=== PATIENT | male | born 1950 | race Caucasian/White ===

== ENCOUNTER 2024-11-17 18:22 | Inpatient (IN) | payer OTHER ==
[~2024-11-17] VITALS: Ht 185.4 cm; Wt 96.8 kg
[2024-11-17] MEDS ORDERED: Albuterol 2.5 MG/3 ML VIAL INH SCH (22:25)
[2024-11-17] MEDS ORDERED: Azithromycin 500 MG in NS 250 ML IV ONE (23:00)
[2024-11-17] MEDS ORDERED: CefTRIAXone Sodium 1,000 MG in NS 100 ML IV ONE (23:00)
[2024-11-17] MEDS ORDERED: FLU VACC TS2024-25(6MOS UP)/PF 45 MCG/0.5 ML SYRINGE IM ONE (23:25)
[2024-11-17] MEDS ORDERED: ATEN50 PO (23:33)
[2024-11-17 23:35] LABS: Influenza A, PCR NEGATIVE (NEGATIVE); Influenza B, PCR NEGATIVE (NEGATIVE); Resp Syncytial Virus, PCR NEGATIVE (NEGATIVE)
[2024-11-18 00:03] LABS: SARS-Cov-2 (COVID-19) PCR, MMC POSITIVE (NEGATIVE)
[2024-11-18 00:09] LABS: Base Excess Venous -11.9 mmol/L; Bicarbonate Venous 16.7 mmol/L (24.0-30.0); PCO2 Venous 21.6 mmHg (38-42); pH Blood Venous 7.39 (7.34-7.37)
[2024-11-18 01:20] VITALS: BP 125/76
--- NOTE | 2024-11-18 01:28 | NUR ---
0045 PT ARRIVED TO ROOM VIA GURNEY FROM ER IN STABLE CONDITION. REPORTS SOB THAT INCREASES WITH EXERTION, ON 2L NC O2 AT 99%. NO OTHER APPARENT SIGNS OF DISTRESS. CALL LIGHT IS IN REACH.
--- NOTE | 2024-11-18 05:47 | NUR ---
0200 PT LYING IN BED, EYES CLOSED, APPEARS TO BE RESTING. BREATHING IS EVEN, UNLABORED. NO APPARENT SIGNS OF DISTRESS. CALL LIGHT IS IN REACH.
--- NOTE | 2024-11-18 05:51 | NUR ---
0400 PT LYING IN BED, EYES CLOSED, APPEARS TO BE RESTING. BREATHING IS EVEN, UNLABORED. NO APPARENT SIGNS OF DISTRESS. CALL LIGHT IS IN REACH.
--- NOTE | 2024-11-18 05:52 | NUR ---
PT IS AAO X 4, REPORTS SOB THAT INCREASES WITH EXERTION, ON 2L NC O2 AT 99%.
--- NOTE | 2024-11-18 05:53 | NUR ---
PT LYING IN BED, EYES CLOSED, APPEARS TO BE RESTING. BREATHING IS EVEN, UNLABORED. NO APPARENT SIGNS OF DISTRESS. CALL LIGHT IS IN REACH. NO OTHER CHANGES THIS SHIFT.
[2024-11-18 06:02] LABS: BASOPHILS ABSOLUTE AUTO 0.03 K/mm3 (0.00-0.23); BASOPHILS PERCENT AUTO 1 % (0-2); EOSINOPHILS ABSOLUTE AUTO 0.29 K/mm3 (0.00-0.68); EOSINOPHILS PERCENT AUTO 4 % (0-6); IMMATURE GRAN ABSOLUTE AUTO 0.06 K/mm3 (0.00-0.10); IMMATURE GRAN PERCENT AUTO 1 % (0-1); LYMPHOCYTES ABSOLUTE AUTO 0.69 K/mm3 (0.84-5.20); LYMPHOCYTES PERCENT AUTO 11 % (21-46); MONOCYTES ABSOLUTE AUTO 0.38 K/mm3 (0.16-1.47); MONOCYTES PERCENT AUTO 6 % (4-13); Mean Corpuscular HGB 30.8 pg (26.0-34.0); Mean Corpuscular Volume 88 fL (80-100); Mean Platelet Volume 9.4 fL (9.1-12.4); NEUTROPHILS ABSOLUTE AUTO 5.14 K/mm3 (1.96-9.15); NEUTROPHILS PERCENT AUTO 78 % (41-73); Platelet Count 247 K/mm3 (150-400); RDW Coefficient Variation 13.8 % (11.7-14.2); Red Blood Cell Count 4.54 M/mm3 (4.30-5.90); White Blood Cell Count 6.59 K/mm3 (4.00-11.30)
[2024-11-18 06:09] VITALS: BP 136/72
[2024-11-18 06:18] LABS: Albumin, Blood 1.9 g/dL (3.4-5.0); Albumin/Globulin Ratio 0.5 (0.8-1.8); Bilirubin, Total 0.7 mg/dL (0.1-1.0); Calcium, Blood 9.5 mg/dL (8.5-10.1); Creatinine, Blood 0.9 mg/dL (0.60-1.20); Globulin, Blood 4.2 g/dL (2.2-4.0); Magnesium, Blood 2.3 mg/dL (1.6-2.4); Potassium, Blood 3.7 mmol/L (3.5-5.5); Total Protein, Blood 6.1 g/dL (6.4-8.2)
[2024-11-18 08:13] VITALS: BP 143/70
[2024-11-18] MEDS ORDERED: NIRMATRELVIR/RITONAVIR 3 TAB BLISTER CARD PO SCH (09:00)
[2024-11-18] MEDS ORDERED: Enoxaparin 40 MG/0.4 ML SYR SC SCH (09:00)
[2024-11-18] MEDS ORDERED: Lactobacil 2-S.Thermo-Bifido 1 1 Cap PO SCH (09:00)
--- NOTE | 2024-11-18 17:50 | NUR ---
PATIENT A/OX4, UP INDEPENDENTLY IN ROOM. VSS, ON 1LO2 TO MAINTAIN SATS. SOB WITH EXERTION. CONTINENT OF BOWEL/BLADDER. DENIES ANY PAIN OR DISCOMFORT. TOLERATING HEART HEALTHY DIET. NO NEW CONCERNS THIS SHIFT. PATIENT COOPERATIVE WITH CARE AND MAKES NEEDS KNOWN.
[2024-11-18 19:55] VITALS: BP 142/69
[2024-11-18] MEDS ORDERED: NS 250 ML IV PRN (20:20)
[2024-11-18] MEDS ORDERED: Atenolol 50 MG Tab PO SCH (21:00)
[2024-11-18] MEDS ORDERED: Azithromycin 500 MG in NS 250 ML IV SCH (21:00)
[2024-11-18] MEDS ORDERED: CefTRIAXone Sodium 1,000 MG in NS 100 ML IV SCH (21:00)
--- NOTE | 2024-11-19 05:37 | NUR ---
SHIFT SUMMARY PT COMPLAINING OF DRY MOUTH. OFFERED MOUTH HYDRATION DROPS, SUDANESE ICE POPS, WATER, AND SPONGES. PT STATES HE USES COUGH DROPS AT HOME FOR HIS CHRONIC DRY MOUTH. PT CONTENT WITH OPTIONS GIVEN TO HIM. PT HAS SLEPT THROUGH NIGHT AND HAS BEEN PLEASANT AND COOPERATIVE WITH HIS CARE. DR. US ORDERED MORNING LABS, CMP AND CBC. ORDER ENTERED AND LABS DRAWN. WILL RELAY TO DAY SHIFT.
[2024-11-19 06:01] LABS: BASOPHILS ABSOLUTE AUTO 0.03 K/mm3 (0.00-0.23); BASOPHILS PERCENT AUTO 1 % (0-2); EOSINOPHILS ABSOLUTE AUTO 0.27 K/mm3 (0.00-0.68); EOSINOPHILS PERCENT AUTO 5 % (0-6); Hematocrit 41.1 % (37.0-53.0); Hemoglobin 14.1 g/dL (13.5-17.5); IMMATURE GRAN ABSOLUTE AUTO 0.07 K/mm3 (0.00-0.10); IMMATURE GRAN PERCENT AUTO 1 % (0-1); LYMPHOCYTES PERCENT AUTO 15 % (21-46); MONOCYTES ABSOLUTE AUTO 0.33 K/mm3 (0.16-1.47); MONOCYTES PERCENT AUTO 6 % (4-13); Mean Corpuscular HGB 30.3 pg (26.0-34.0); Mean Corpuscular HGB Conc 34.3 g/dL (31.5-36.5); Mean Corpuscular Volume 88 fL (80-100); Mean Platelet Volume 9.4 fL (9.1-12.4); NEUTROPHILS ABSOLUTE AUTO 3.78 K/mm3 (1.96-9.15); NEUTROPHILS PERCENT AUTO 72 % (41-73); Platelet Count 261 K/mm3 (150-400); RDW Coefficient Variation 13.8 % (11.7-14.2); RDW Standard Deviation 44.4 fL (35.1-46.3); Red Blood Cell Count 4.66 M/mm3 (4.30-5.90); White Blood Cell Count 5.28 K/mm3 (4.00-11.30)
[2024-11-19 06:14] LABS: Albumin, Blood 1.9 g/dL (3.4-5.0); Albumin/Globulin Ratio 0.5 (0.8-1.8); Bilirubin, Total 0.6 mg/dL (0.1-1.0); Bun/Creatinine Ratio 19.8 (12.0-20.0); Calcium, Blood 9.3 mg/dL (8.5-10.1); Creatinine, Blood 0.96 mg/dL (0.60-1.20); Globulin, Blood 4.1 g/dL (2.2-4.0); Potassium, Blood 4.3 mmol/L (3.5-5.5)
[2024-11-19 06:19] VITALS: BP 126/71
[2024-11-19 08:08] VITALS: BP 142/72
[2024-11-19] MEDS ORDERED: CEFP200 PO (12:53)
[2024-11-19] MEDS ORDERED: AZIT250 PO (12:54)
[2024-11-19] MEDS ORDERED: VISBIOME 112.51 EACH PO (12:55)
--- NOTE | 2024-11-19 13:57 | NUR ---
PT DISHARGED VIA WHEELCHAIR ALL PAPERWORK REVIEWED AND EDUCATIONAL MATERAIL WAS SENT. PT IS INDPENDENT IN ROOM AND AOX4. NO DISTRESS NOTED. ALL PERSONAL BELONINGS COLLECTED AND TAKEN WITH PT.
== END 2024-11-19 15:08 | disposition home or self-care (01) | DRG 193 ==
LOC: ER 18:22 → MEDS 18:23 → ERHOLD 18:23 → MEDS 11-18 00:41
PROVIDERS: Emergency Medicine; ADMIT Student in an Organized Health Care Education/Training Program
DX: J15.9 Unspecified bacterial pneumonia (principal); J96.01 Acute respiratory failure with hypoxia; G47.33 Obstructive sleep apnea (adult) (pediatric); N18.30 Chronic kidney disease, stage 3 unspecified; I12.9 Hypertensive chronic kidney disease with stage 1 through stage 4 chronic kidney disease, or unspecified chronic kidney disease; E11.22 Type 2 diabetes mellitus with diabetic chronic kidney disease; Z86.16 Personal history of COVID-19
CPT/HCPCS: 0241U; 36415; 71045; 80053; 82803; 83605; 83735; 84145; 84484; 85025; 87070; 87205; 94644; 94664; 94760; 96365; 96367; 99285-25; A9270; G0378; J0456; J0696; J1650; J7050

== ENCOUNTER → 2024-11-17 | Outpatient (CLI) | payer OTHER ==
[~2024-11-17] MED LIST: ATEN50 PO; AZIT250 PO; CEFP200 PO; VISBIOME 112.51 EACH PO
[2024-11-17 16:23] LABS: BASOPHILS ABSOLUTE AUTO 0.03 K/mm3 (0.00-0.23); BASOPHILS PERCENT AUTO 0 % (0-2); EOSINOPHILS ABSOLUTE AUTO 0.34 K/mm3 (0.00-0.68); EOSINOPHILS PERCENT AUTO 4 % (0-6); Hematocrit 42.8 % (37.0-53.0); Hemoglobin 15.1 g/dL (13.5-17.5); IMMATURE GRAN PERCENT AUTO 1 % (0-1); LYMPHOCYTES PERCENT AUTO 8 % (21-46); MONOCYTES ABSOLUTE AUTO 0.38 K/mm3 (0.16-1.47); MONOCYTES PERCENT AUTO 4 % (4-13); Mean Corpuscular HGB 30.3 pg (26.0-34.0); Mean Corpuscular HGB Conc 35.3 g/dL (31.5-36.5); Mean Corpuscular Volume 86 fL (80-100); Mean Platelet Volume 9.2 fL (9.1-12.4); NEUTROPHILS ABSOLUTE AUTO 7.67 K/mm3 (1.96-9.15); NEUTROPHILS PERCENT AUTO 83 % (41-73); Platelet Count 298 K/mm3 (150-400); RDW Coefficient Variation 13.7 % (11.7-14.2); RDW Standard Deviation 42.5 fL (35.1-46.3); Red Blood Cell Count 4.99 M/mm3 (4.30-5.90); White Blood Cell Count 9.22 K/mm3 (4.00-11.30)
[2024-11-17 16:36] LABS: Albumin, Blood 2.2 g/dL (3.4-5.0); Albumin/Globulin Ratio 0.5 (0.8-1.8); Bilirubin, Total 1.1 mg/dL (0.1-1.0); Bun/Creatinine Ratio 22.1 (12.0-20.0); Calcium, Blood 10.2 mg/dL (8.5-10.1); Creatinine, Blood 1.4 mg/dL (0.60-1.20); Globulin, Blood 4.7 g/dL (2.2-4.0); Potassium, Blood 3.8 mmol/L (3.5-5.5); Total Protein, Blood 6.9 g/dL (6.4-8.2)
== END | disposition home or self-care (01) ==
LOC: LAB 16:19 → LAB SHORT 16:19
PROVIDERS: Physician Assistant
DX: R07.9 Chest pain, unspecified (principal); R06.02 Shortness of breath
CPT/HCPCS: 80053; 83880; 84484; 85025

== ENCOUNTER → 2025-06-02 | Outpatient (CLI) | payer OTHER ==
[2025-06-02 17:24] LABS: Creatinine, Urine Random 72.5 mg/dL (27.00-270.00); Microalb/Creat Ratio UR, Rand 59.034 mg/g (0.000-30.000); Microalbumin, Random Urine 42.8 mg/L (0.000-20.000)
== END | disposition home or self-care (01) ==
LOC: LAB 07:46 → LAB SHORT 07:46
DX: E11.69 Type 2 diabetes mellitus with other specified complication (principal)
CPT/HCPCS: 82043; 82570